=== PATIENT | female | born 1975 | race African-American/Black ===

== ENCOUNTER 2017-04-09 16:57 | Emergency (ER) | payer BC ==
[~2017-04-09] VITALS: Ht 157.5 cm; Wt 76.0 kg
[2017-04-09 17:39] VITALS: Ht 157.5 cm; Wt 76.0 kg
[2017-04-09] MEDS ORDERED: IBUP-1542 PO (19:42)
[2017-04-09] MEDS ORDERED: TRAM50TA2 PO (19:42)
[2017-04-09] MEDS ORDERED: CEPH-443 PO (19:55)
--- NOTE | 2017-04-09 20:29 | ERD ---
ER Documentation Chief Complaint Chief Complaint right great toe nail pain x 3 days, HPI 42-year-old female presents here in emergency department for complaints of right big toe after somebody stepped on it 3 days ago. Patient states that the nail got loosened, blood came out noted afterwards. She is complaining of pain sharp pain, 4/10 scale, not better or worse with anything. Able to do full range of motion of the toe without any restriction. Patient denies any numbness or tingling. Patient denies any redness or swelling. ROS All systems reviewed and are negative except as per history of present illness. Medications Home Meds Active Scripts Cephalexin* (Keflex*) 500 Mg Capsule, 500 MG PO QID for 5 Days, CAP Prov:ANDERS JOHNSON DERIVATIVES TRADER 04/09/17 Tramadol HCl (Tramadol HCl) 50 Mg Tablet, 50 MG PO Q6 for SEVERE PAIN LEVEL 7-10 , #20 TAB Prov:ANDERS JOHNSON [employer]IVATIVES TRADER 04/09/17 Ibuprofen* (Motrin*) 600 Mg Tab, 600 MG PO Q6H Y for PAIN AND OR ELEVATED TEMP, #30 TAB Prov:ANDERS JOHNSON DERIVATIVES TRADER 04/09/17 Allergies Allergies: Coded Allergies: No Known Allergy (Unverified , 04/09/17) PMhx/Soc Medical and Surgical Hx: pt denies Medical Hx, pt denies Surgical Hx History of Surgery: No Hx Neurological Disorder: No Hx Respiratory Disorders: No Hx Cardiac Disorders: No Hx Psychiatric Problems: No Hx Miscellaneous Medical Probl: Yes (HIV+) Hx Alcohol Use: No Hx Substance Use: No Hx Tobacco Use: Yes Smoking Status: Light tobacco smoker FmHx Family History: No coronary disease, No diabetes, No other Physical Exam Vitals Vital Signs Date Time Temp Pulse Resp B/P Pulse Ox O2 Delivery O2 Flow Rate FiO2 04/09/17 17:39 97.3 58 18 115/58 100 Physical Exam GENERAL: The patient is well developed and appropriate for usual state of health, in no apparent distress. CHEST: Clear to auscultation bilaterally. There are no rales, wheezes or rhonchi. HEART: Regular rate and rhythm. No murmurs, clicks, rubs or gallops. No S3 or S4. ABDOMEN: Soft, nontender and nondistended. Good bowel sounds. No rebound or guarding. No gross peritonitis. No gross organomegaly or masses. No Barney sign or McBurney point tenderness. BACK: No midline or flank tenderness. EXTREMITIES: tender on palpation on the right big toe, no swelling, no deformity. Able to do full range of motion without any restriction. Equal pulses bilaterally. There is no peripheral clubbing, cyanosis or edema. No focal swelling or erythema. Full range of motion. Grossly neurovascularly intact. NEURO: Alert and oriented. Cranial nerves 2-12 intact. Motor strength in all 4 extremities with 5/5 strength. Sensation grossly intact. Normal speech and gait. SKIN: There is no apparent rash or petechia. The skin is warm and dry. HEMATOLOGIC AND LYMPHATIC: There is no evidence of excessive bruising or lymphedema. No gross cervical, axillary, or inguinal lymphadenopathy. Procedures/MDM Medical Decision Making: Patient's pain is most likely consistent with a toe contusion. There is no suspicion for neurovascular compromise. Patient has intact sensation and circulation of the affected extremity. There is low suspicion for septic arthritis. Patient does not have any fever. Xrays not recommended at this time. Disposition: Home. Patient is given prescription for ibuprofen for pain. Patient was advised to elevate the affected area and apply ice on affected area. Patient was advised that if symptoms are worse, numbness, tingling, high fever, unable to move joint, worsening symptoms, to return to emergency department immediately. Otherwise, patient is advised to follow up with the primary care doctor in 5-7 days for reevaluation of symptoms. Disclaimer: Inadvertent spelling and grammatical errors are likely due to EHR/ dictation software use and do not reflect on the overall quality of patient care. Also, please note that the electronic time recorded on this note does not necessarily reflect the actual time of the patient encounter. Departure Diagnosis: Primary Impression: Toe pain Laterality: right Qualified Code: M79.674 - Pain of toe of right foot Condition: Stable Patient Instructions: Crush Injury, Foot/Toe ANDERS JOHNSON NP Apr 09, 2017 20:29
== END 2017-04-09 20:00 | disposition home or self-care (01) ==
LOC: FTE 16:57
DX: M79.674 Pain in right toe(s) (principal); F17.210 Nicotine dependence, cigarettes, uncomplicated
CPT/HCPCS: 99284

== ENCOUNTER 2018-09-29 13:29 | Emergency (ER) | payer BC, OTHER ==
[~2018-09-29] VITALS: Wt 89.0 kg
[~2018-09-29 13:29] MED LIST: CEPH-443 PO; IBUP-1542 PO; TRAM50TA2 PO
--- NOTE | 2018-09-29 14:59 | ERD ---
ER Documentation Chief Complaint Chief Complaint SORE THROAT,NASAL CONGESTION,EAR PAIN HPI 43-year-old female, with history of HIV, presents the emergency department, complaining of 1 week with worsening of bilateral ear pain, sore throat and nasal congestion. The patient denies fever, no shortness of breath, no di fficulty swallowing. The patient has been taking ibuprofen with mild improvement of the symptoms. Otherwise, the patient is on antiretroviral medication and Bactrim prophylactic. ROS All systems reviewed and are negative except as per history of present illness. Medications Home Meds Active Scripts Hydrocodone/Acetaminophen ([place] 10-325 Tablet) 1 Each Tablet, 1 EACH PO Q4 for 5 Days, #7 TAB Prov:EUGENIA SEQUEIRA NP 10/01/18 Oxymetazoline Hcl* (Afrin [place]*) 0.05% - 15 Ml [place], 2 SPRAYS NASAL BID for 10 Days, #1 EA to each nostril Prov:EUGENIA SEQUEIRA NP 10/01/18 Pseudoephedrine Hcl* (Pseudoephedrine Hcl*) 60 Mg Tablet, 60 MG PO Q6 PRN for CONGESTION for 5 Days, #20 TAB Prov:EUGENIA SEQUEIRA NP 10/01/18 Amoxicillin/Potassium Clav (Amox-Clav 875-125 mg Tablet) 875-125 mg Tab, 1 TAB PO BID for 5 Days, #10 TAB Prov:EUGENIA SEQUEIRA NP 10/01/18 Neomycin/Polymyxin/Hydrocort* (Cortisporin* Otic) 10 Ml Susp, 4 DROP BOTH EARS QID for 7 Days, EA Prov:MARIANELA LOZANO MD 09/29/18 Hydrocodone/Acetaminophen ([place] 5-325 Tablet) 1 Each Tablet, 1 TAB PO QHS PRN for PAIN, #7 TAB Prov:MARIANELA LOZANO MD 09/29/18 Azithromycin* (Zithromax*) 250 Mg Tablet, 250 MG PO .ROSETTACK DIRECTED, #6 TAB TAKE 500 MG (2 TABS) THE FIRST DAY THEN 250 MG (1 TAB) DAYS 2-5 Prov:MARIANELA LOZANO MD 09/29/18 Cephalexin* (Keflex*) 500 Mg Capsule, 500 MG PO QID for 5 Days, CAP Prov:ANDERS JOHNSON NP 04/09/17 Tramadol HCl (Tramadol HCl) 50 Mg Tablet, 50 MG PO Q6 for SEVERE PAIN LEVEL 7- 10, #20 TAB Prov:ANDERS JOHNSON [employer]ING MACHINE OPERATOR 04/09/17 Ibuprofen* (Motrin*) 600 Mg Tab, 600 MG PO Q6H PRN for PAIN AND OR ELEVATED TEMP, #30 TAB Prov:ANDERS JOHNSON [employer]ING MACHINE OPERATOR 04/09/17 Allergies Allergies: Coded Allergies: No Known Allergy (Unverified , 04/09/17) PMhx/Soc History of Surgery: No Hx Neurological Disorder: No Hx Respiratory Disorders: No Hx Cardiac Disorders: No Hx Psychiatric Problems: No Hx Miscellaneous Medical Probl: Yes (HIV+) Hx Alcohol Use: No Hx Substance Use: No Hx Tobacco Use: Yes FmHx Family History: No diabetes, No coronary disease Physical Exam Vitals Vital Signs Date Temp Pulse Resp B/P (MAP) Pulse Ox O2 O2 Flow FiO2 Time Delivery Rate 09/29/18 99.2 60 18 113/66 100 Room Air 16:11 (82) 09/29/18 97.0 82 115/68 99 13:38 (84) Physical Exam Patient alert, oriented, vital signs stable. HEENT: Normocephalic, atraumatic. EYES: PERRLA, EOMI, Sclera and conjunctiva appear normal. EARS: Left ear with significant tympanic membrane erythema, retraction and opacity with edema of the canal. Contralateral ear normal. THROAT: Erythematous oropharynx. NECK: Supple, No lymphadenopathy. Full ROM without pain or tenderness. HEART: RRR, no rubs, murmurs, clicks or gallops. LUNGS: Clear to auscultation. ABDOMEN: Soft, non-tender without masses or hepatosplenomegaly. EXTREMITIES: No edema bilaterally. BACK: Full ROM, no deformity, normal back exam NEURO: Cranial nerves grossly intact, no motor or sensory deficit Procedures/MDM Vital signs stable, differential diagnosis include but not limited to: infection bacterial/viral/fungal. Tonsillitis, eustachian dysfunction, allergies, foreign body, cholesteatoma. Less likely mastoiditis, malignant otitis, meningitis. Physical examination and clinical presentation consistent most likely with left otitis media. During the ED course the patient remained stable, no new complaints. Clinical impression discussed with the patient who agrees with management. The patient is stable to be treated outpatient and will be discharged home with a Rx for antibiotics and ibuprofen. Some side effects of prescribed medications (headache, rash, nausea, vomiting, diarrhea, interactions with other medications) were reviewed. The patient was instructed to follow up with the primary care provider in the next 48h. If symptoms persist, worsen or new symptoms develop, then patient should return to the ED immediately. Disclaimer: Inadvertent spelling and grammatical errors are likely due to EHR/dictation software use and do not reflect on the overall quality of patient care. Also, please note that the electronic time recorded on this note does not necessarily reflect the actual time of the patient encounter. Departure Diagnosis: Primary Impression: Left otitis media with effusion Condition: Stable Additional Instructions: Thank you very much for allowing us to participate in your care. Your health and safety is our top priority at [facility]. The evaluation in the emergency department has been done to rule out an acute emergency, therefore, chronic conditions like malignancy or other diseases have not been evaluated; therefore, you need to follow up with a primary care provider in the next 48h. If symptoms persist, worsen or new symptoms develop, then patient should return to the ED immediately. Call your primary care doctor TOMORROW for an appointment during the next 2-4 days and bring all the information provided. Have prescriptions filled and follow precisely the directions on the label. If the symptoms get worse and your provider is unavailable, return to the Emergency Department immediately. MARIANELA LOZANO MD Sep 29, 2018 14:59
[2018-09-29] MEDS ORDERED: NPH10OT BOTH EARS (15:00)
[2018-09-29] MEDS ORDERED: AZIT250T PO (15:00)
[2018-09-29] MEDS ORDERED: HYDR-4011 PO (15:00)
[2018-09-29 16:11] VITALS: BP 113/66; PULSE 60; RESP 18
== END 2018-09-29 16:13 | disposition home or self-care (01) ==
LOC: FTE 13:29
DX: H65.92 Unspecified nonsuppurative otitis media, left ear (principal); Z21 Asymptomatic human immunodeficiency virus [HIV] infection status
CPT/HCPCS: 99283

== ENCOUNTER 2018-10-01 16:21 | Emergency (ER) | payer OTHER ==
[~2018-10-01] VITALS: Ht 160 cm; Wt 85.9 kg
[~2018-10-01 16:21] MED LIST changes: +AZIT250T PO; +HYDR-4011 PO; +NPH10OT BOTH EARS
[2018-10-01 16:25] VITALS: Ht 160 cm; Wt 85.9 kg
[2018-10-01] MEDS ORDERED: HYDROCODONE/APAP (10/325) TAB PO ONE (17:00)
[2018-10-01] MEDS ORDERED: OXYMETAZOLINE 0.05% 15 ML NAS SPRAY NASAL ONE ×2 (17:00→18:00)
[2018-10-01] MEDS ORDERED: PSEUDOEPHEDRINE 30 MG TAB PO ONE (17:00)
--- NOTE | 2018-10-01 17:00 | ERD ---
ER Documentation Chief Complaint Chief Complaint pt bib RA with c/o bilatt ear pain since Sunday, HPI This is a 43-year-old female patient who presents to the emergency room with continued ear and head pain since being seen here 2 days ago with ear infection. Denies any fever since then, plus diarrhea, plus nausea, states that throat feels like it is on fire and cannot hear out of her left ear as though she is under water. History significant for HIV. Has been taking 800 mg ibuprofen every 3 to 4 hours with [place] without relief. So using external eardrops without relief. Compliant with prescribed Zithromax. ROS All systems reviewed and are negative except as per history of present illness. Medications Home Meds Active Scripts Hydrocodone/Acetaminophen ([place] 10-325 Tablet) 1 Each Tablet, 1 EACH PO Q4 for 5 Days, #7 TAB Prov:EUGENIA SEQUEIRA NP 10/01/18 Oxymetazoline Hcl* (Afrin [place]*) 0.05% - 15 Ml [place], 2 SPRAYS NASAL BID for 10 Days, #1 EA to each nostril Prov:EUGENIA SEQUEIRA NP 10/01/18 Pseudoephedrine Hcl* (Pseudoephedrine Hcl*) 60 Mg Tablet, 60 MG PO Q6 PRN for CONGESTION for 5 Days, #20 TAB Prov:EUGENIA SEQUEIRA NP 10/01/18 Amoxicillin/Potassium Clav (Amox-Clav 875-125 mg Tablet) 875-125 mg Tab, 1 TAB PO BID for 5 Days, #10 TAB Prov:EUGENIA SEQUEIRA NP 10/01/18 Neomycin/Polymyxin/Hydrocort* (Cortisporin* Otic) 10 Ml Susp, 4 DROP BOTH EARS QID for 7 Days, EA Prov:MARIANELA LOZANO MD 09/29/18 Hydrocodone/Acetaminophen ([place] 5-325 Tablet) 1 Each Tablet, 1 TAB PO QHS PRN for PAIN, #7 TAB Prov:MARIANELA LOZANO MD 09/29/18 Azithromycin* (Zithromax*) 250 Mg Tablet, 250 MG PO .ZPACK DIRECTED, #6 TAB TAKE 500 MG (2 TABS) THE FIRST DAY THEN 250 MG (1 TAB) DAYS 2-5 Prov:MARIANELA LOZANO MD 09/29/18 Cephalexin* (Keflex*) 500 Mg Capsule, 500 MG PO QID for 5 Days, CAP Prov:ANDERS JOHNSON NP 04/09/17 Tramadol HCl (Tramadol HCl) 50 Mg Tablet, 50 MG PO Q6 for SEVERE PAIN LEVEL 7- 10, #20 TAB Prov:ANDERS JOHNSON NP 04/09/17 Ibuprofen* (Motrin*) 600 Mg Tab, 600 MG PO Q6H PRN for PAIN AND OR ELEVATED TEMP, #30 TAB Prov:ANDERS JOHNSON NP 04/09/17 Allergies Allergies: Coded Allergies: No Known Allergy (Unverified , 04/09/17) PMhx/Soc History of Surgery: No Hx Neurological Disorder: No Hx Respiratory Disorders: Yes (recent hospitalization for PNA) Hx Cardiac Disorders: No Hx Psychiatric Problems: No Hx Miscellaneous Medical Probl: Yes (HIV+) Hx Alcohol Use: No Hx Substance Use: No Hx Tobacco Use: Yes Smoking Status: Current every day smoker Physical Exam Vitals Vital Signs Date Temp Pulse Resp B/P (MAP) Pulse Ox O2 O2 Flow FiO2 Time Delivery Rate 10/01/18 98.4 66 18 121/70 99 16:25 (87) Physical Exam Const: No acute distress Head: Atraumatic Eyes: Normal Conjunctiva, PERRL, sclera white ENT: right ear tm with +effusion, left ear with slough on external ear canal, red and injected TM, Nose congested, Mouth without lesions, petechiae, difficult to assess tonsils as patient has very sensitive gag reflex, + strep breath. Neck: Full range of motion. No meningismus. No lymphadenopathy Resp: Clear to auscultation bilaterally Cardio: Regular rate and rhythm, no murmurs Abd: Soft, non tender, non distended. Normal bowel sounds Skin: No petechiae or rashes Back: No midline or flank tenderness Ext: No cyanosis, or edema Neur: Awake and alert Psych: Normal Mood and Affect Results 24 hrs Laboratory Tests Test 10/01/18 17:12 Monoscreen Negative Current Medications Medications Dose Sig/Maryam Start Time Status Last (Trade) Ordered Route PRN Stop Time Admin Dose Reason Admin 1 tab ONCE ONCE 10/01/18 DC 10/01/18 Acetaminophen PO 17:00 17:23 / 10/01/18 17:01 Hydrocodone Bitart ([place] (10)) 60 mg ONCE ONCE 10/01/18 DC 10/01/18 Pseudoephedri PO 17:00 17:36 ne HCl 10/01/18 17:01 (Sudogest) 2 spray ONCE ONCE 10/01/18 DC Oxymetazoline NASAL 17:00 HCl (Afrin 10/01/18 17:01 [place]) 2 spray ONCE ONCE 10/01/18 DC 10/01/18 Oxymetazoline NASAL 18:00 17:45 HCl (Afrin 10/01/18 18:01 [place]) 875 mg ONCE ONCE 10/01/18 DC Amoxicillin/ PO 18:30 Clavulanate 10/01/18 18:31 Potassium (Augmentin) Procedures/MDM This is a 43-year-old female patient who presents to the emergency room with increased left ear pain over the last week, patient was here 2 days ago prescribed Zithromax and has not shown improvement. Patient now saying her throat feels like it is on fire. ED COURSE: The patient was stable throughout ED course. MEDICATIONS GIVEN: [place], sudafed, Afrin Patient tolerated medication well with no adverse reactions. Patient reported improvement in pain. Evaluation of strep and mono negative. Patient verbalized improvement in head pain and ear pain with Sudafed and [place], states that she believes that the Afrin nasal spray and was essential in decreasing her nasal congestion and allowing her to have improvement of her dysphagia. Antibiotic will be changed to Augmentin with prescription provided for Sudafed, [place], Afrin with instructions on use. Patient's ENT symptoms have stabilized while in the department and are appropriate for outpatient work up. Exam and w/u not consistent w/ deep space infection of the face, throat, or mastoids. No evidence of impending TM rupture, airway compromise, or meningitis. Instructed to return to emergency department immediately for worsening or changing of symptoms. Patient has been prescribed narcotic medications. Patient was instructed that narcotics cannot be refilled from our emergency department and these medications are for temporary acute condition and should be replaced by use of Tylenol, ibuprofen, and add adjunctive therapy such as use of heat or cooling. Patient instructed that narcotics are habit forming and can lead to dependency. Patient instructed to use stool softener and increase hydration while taking narcotics. Patient instructed to not operate heavy machinery, operate vehicle, care for small children while on narcotic medication. [place] database reviewed for controlled substance history. There is no indication the patient is abusing prescription medications or is at risk for misuse. History and Physical exam demonstrate the prescribed medication is indicated for the treatment of the patient's condition. DISPOSITION: The patient has been discharge home to follow-up with community physician. Departure Diagnosis: Primary Impression: Left ear pain Condition: Stable Patient Instructions: Common Middle Ear Problems Referrals: [facility] Additional Instructions: Thank you very much for allowing us to participate in your care. Your health and safety is our top priority at [facility]. Call your primary care doctor TOMORROW for an appointment during the next 2-4 days and bring all the information and medications prescribed. Have prescriptions filled and follow precisely the directions on the label. If the symptoms get worse and your provider is unavailable, return to the Emergency Department immediately. FOLLOW-UP WITH YOUR DOCTOR IN 3-5 DAYS Top taking azithromycin. Start Augmentin tomorrow. Increase hydration to 1-2 L/day. Use Sudafed and Afrin as needed for nasal congestion. Use [place] as needed for pain. Narcotics cannot be refilled from our emergency department and these medications are for temporary acute condition and should be replaced by use of Tylenol, ibuprofen, and add adjunctive therapy such as use of heat or cooling. Narcotics are habit forming and can lead to dependency. Use stool softener and increase hydration while taking narcotics. Do not operate heavy machinery, operate vehicle, care for small children while on narcotic medication. EUGENIA ROSENTHAL NP Oct 01, 2018 17:00
[2018-10-01] MEDS ORDERED: OXYM15SP34 NASAL (18:26)
[2018-10-01] MEDS ORDERED: HYDR-3980 PO (18:26)
[2018-10-01] MEDS ORDERED: AMOX1TAB10 PO (18:26)
[2018-10-01] MEDS ORDERED: PSEU60TA2 PO (18:26)
[2018-10-01] MEDS ORDERED: AMOXICILLIN/CLAV 875 MG TAB PO ONE (18:30)
[2018-10-01 19:00] VITALS: BP 119/64; PULSE 61; RESP 18
== END 2018-10-01 19:08 | disposition home or self-care (01) ==
LOC: FTE 16:21
DX: H92.02 Otalgia, left ear (principal); F17.210 Nicotine dependence, cigarettes, uncomplicated; Z21 Asymptomatic human immunodeficiency virus [HIV] infection status
CPT/HCPCS: 86308; 87880; Z7502; Z7610; 99283